=== PATIENT | male | born 1970 | race Caucasian/White ===

== ENCOUNTER 2021-12-17 07:30 | Day surgery (SDC) | payer MEDICAID, SELFPAY ==
[2021-12-16 10:56] VITALS: BMI 21.7
[2021-12-17] VITALS (11 sets, daily range): BP systolic 109–132; BP diastolic 65–77; PULSE 59–68; RESP 14–18; TEMP 36.3–36.7; O2SAT 94–99
--- NOTE | 2021-12-17 08:09 | W.PM.OPSFHP ---
Same Day Surgery H&P Indication for Procedure/HPI DATE OF PROCEDURE: December 17, 2021 CHIEF COMPLAINT/INDICATIONFOR SURGICAL PROCEDURE: Bilateral inguinal hernia PREOP DIAGNOSIS: inguinal hernia PLANNED PROCEDURE: Operation Date: 12/17/21 09:25 Proposed Procedures p lap poss open bilateral inguinal hernia 86044 2x,K40.20(Bilateral) - Иван Borjas MD Medications/Allergies* Home Medications Medication Instructions Recorded Confirmed Type No Known Home Medications 12/16/21 12/17/21 History Allergies/Adverse Reactions Allergy/AdvReac Type Severity Reaction Status Date / Time No Known Allergies Allergy Verified 12/17/21 07:56 Pertinent History/Comorbid Conditions* Medical History (Updated 12/10/21 @ 10:54 by Ивна Borjas MD) History of umbilical hernia Social History Smoking and tobacco status: current some day smoker Pertinent Exam Findings alert, oriented x 3 and regular rate & rhythm Recommendations Surgery/Procedure today Coding Level of Care Code Acute Certified [employer] for [employer]
[2021-12-17] MEDS: sodium chloride 0.9% 1,000 ML 30 ML IV (08:15)
[2021-12-17] MEDS: ceFAZolin 2,000 MG in sodium chloride 0.9% (plus) 50 ML 100 MG IV (08:47)
--- NOTE | 2021-12-17 08:53 | ANES.PREANE2 ---
Pre-Anesthetic Assessment Height/Weight: Height 1.83 m Weight 72.575 kg Temp Pulse Resp BP Pulse Ox O2 Del Method 97.8 F 68 16 117/70 95 12/17/21 07:50 12/17/21 07:50 12/17/21 07:50 12/17/21 07:50 12/17/21 07:50 12/17/21 07:50 Preop Diagnosis: inguinal hernia Operation Date: 12/17/21 09:25 Proposed Procedures p lap poss open bilateral inguinal hernia 91685 2x,K40.20(Bilateral) - Иван Borjas MD Familial anesthetic complications: None Was Beta Abbie taken within 24 hours: N/A Was Clonidine taken within 24 hours: N/A Last intake: Intake Last Liquid Date 12/16/21 Last Liquid Time 22:00 Last Solid Date 12/16/21 Last Solid Time 21:00 Social Tobacco and No alcohol Exam alert, oriented x 3 and regular rate & rhythm Airway Submandibular: within normal limits Cervical ROM: within normal limits Mallampati: Class II Dentition: chipped Comments: Comments: Poor dentition, missing several Pulmonary Chronic Obstructive Pulmonary Disease Anesthetic Plan ASA status: 2 Anesthesia: General Medications/Allergies Home Medications Medication Instructions Recorded Confirmed Last Taken Type hydrocodone 5 mg-acetaminophen 325 1 tab PO Q6H PRN pain #20 tabs 12/17/21 Unknown Rx mg tablet Allergies Allergy/AdvReac Type Severity Reaction Status Date / Time No Known Allergies Allergy Verified 12/17/21 07:56 Current Medications Generic Name Dose Route Start Last Admin Trade Name Freq PRN Reason Stop Dose Admin Sodium Chloride 1,000 mls @ 30 mls/hr 12/17/21 07:45 12/17/21 08:15 Sodium Chloride 0.9% IV 12/18/21 07:44 30 mls/hr .Q24H AARON Administration PFSH Anesthesia Medical History (Updated 12/10/21 @ 10:54 by Иван Borjas MD) History of umbilical hernia Surgical History (Updated 12/17/21 @ 08:12 by Иван Borjas MD) S/P bilateral inguinal hernia repair (12/17/21) Social History Smoking and tobacco status: current some day smoker Data Anesthesia Cardiac Studies: No Data to Display
--- NOTE | 2021-12-17 10:15 | P.OP_ITS ---
Operative Report Date of procedure: December 17, 2021 Pre-op diagnosis: Bilateral inguinal hernia Post-op diagnosis: Bilateral reducible direct inguinal hernia Procedure done: Laparoscopic total extraperitoneal repair of bilateral direct inguinal hernia with Surgimax 3D mesh measuring 16 x10 cm Pathology: none sent Surgeon: Иван Borjas Anesthesia: General Condition: stable Disposition: PACU Procedure: The patient was taken to the operating room, intubated under general anesthesia. After IV antibiotic was administered, the abdomen was prepped and draped in a sterile manner. Using a 15 blade, a 1.0 cm transverse incision was made infraumbilically on the right side. Subcutaneous tissue was divided using electrocautery and the anterior rectus sheath divided using an 11 blade. The rectus muscle was retracted laterally and the extraperitoneal space identified. The retrorectus space was opened using balloon dilator. A 11 mm port was placed and 15 mm of pneumoperitoneum was created. A 10 mm 30? scope was introduced and the retrorectus space was opened using the camera up to the pubic symphysis and 5 mm ports were placed in the midline, one 2-fingerbreadths above the pubic s ymphysis and the other midway between these two ports under direct visualization. The dissection was then carried laterally on the right side where the iliopubic tract was identified. There was no femoral or obturator hernia noted. There was a large indirect hernia which was reduced. The inferior epigastric artery was identified and dissection was carried posterior to it and laterally, the sp marshall was opened up to the level of the umbilicus superior to the anterior superior iliac spine. I then proceeded to dissect out the spermatic cord and the edge of the peritoneum was peeled back. The dissection was then carried laterally on the left side where the iliopubic tract was identified. There was no femoral or obturator hernia noted. There was a large indirect hernia which was reduced. The inferior epigastric artery was identified and dissection was carried posterior to it and laterally, the space was opened up to the level of the umbilicus superior to the anterior superior iliac spine. I then proceeded to dissect out the spermatic cord and the edge of the peritoneum was peeled back. 16 x 10 cm Surgimax 3D mesh was rolled and introduced through the 10 mm port and then rolled laterally on the left side and apposed well against the abdominal wall to cover the myopectineal orifice completely. 16 x 10 cm Surgimax 3D mesh was rolled and introduced through the 10 mm port and then rolled laterally on the right side and apposed well against the abdominal wall to cover the myopectineal orifice completely. The mesh were secured with Securestraps. 10 Cc of 0.5% Marcaine was infiltrated into the preperitoneal space. The extraperitoneal space was desufflated under direct visualization to ensure no slippage of hernial sac under the mesh. All ports were removed, the anterior rectus fascia at the infraumbilical port closed using figure of eight 0 Vicryl sutures, subcutaneous tissue approximated using 3-0 Vicryl sutures and skin at all three port sites were closed using running subcuticular 4-0 Monocryl sutures and Dermabond. 10 mL of 0.5% Marcaine was infiltrated at the port sites. The patient was stable throughout the procedure.
[2021-12-17] MEDS: fentaNYL 50 mcg/mL INJ 2mL IVP (10:34)
[2021-12-17] MEDS: HYDROcodone-acetaminophen 5-325 mg Tablet 1 TAB PO (11:14)
--- NOTE | 2021-12-17 15:48 | ANE.PACU2 ---
Inpatient post-anesthesia follow up: Airway intact: Yes Vital signs: Temperature 98.1 F Pulse Rate 68 Respiratory Rate 18 Blood Pressure 109/70 Pulse Oximetry 96 Oxygen Delivery Me thod Room Air Oxygen Flow Rate 6 Fraction of Inspir ed Oxygen Hydration adequate: Yes Nausea and vomiting: No Pain level: 3 Mental status: Baseline
== END 2021-12-17 11:30 | disposition home or self-care (01) ==
PROVIDERS: Visit Provider Surgery
PROC: (CPT 49650; principal; 2021-12-17 09:15)
DX: K40.20 Bilateral inguinal hernia, without obstruction or gangrene, not specified as recurrent (principal); J44.9 Chronic obstructive pulmonary disease, unspecified; F17.210 Nicotine dependence, cigarettes, uncomplicated
CPT/HCPCS: 49650; C1781; J1100; J1170; J2405; J2704; J2710; J3010; J3490; J7030